=== PATIENT | male | born 1985 | race Caucasian/White ===

== ENCOUNTER 2018-10-11 19:27 | Emergency (ER) | payer OTHER ==
[~2018-10-11] VITALS: Ht 193 cm; Wt 105.0 kg
[2018-10-11] MEDS ORDERED: LIDOcaine 1% w/epiNEPHrine 1:200,000 30ml vial IM ONE (20:00)
[2018-10-11 20:22] VITALS: BP 141/86
== END 2018-10-11 21:31 | disposition home or self-care (01) ==
LOC: ER 19:28
DX: S01.01XA Laceration without foreign body of scalp, initial encounter (principal); S01.112A Laceration without foreign body of left eyelid and periocular area, initial encounter; W01.0XXA Fall on same level from slipping, tripping and stumbling without subsequent striking against object, initial encounter; Y93.89 Activity, other specified; Y92.89 Other specified places as the place of occurrence of the external cause; Y99.8 Other external cause status
CPT/HCPCS: 12001; 12013; 99284